=== PATIENT | male | born 1975 | race Caucasian/White ===

== ENCOUNTER 2019-10-05 09:41 | Emergency (ER) | payer OTHER, SELFPAY ==
[2019-10-05 09:49] VITALS: BP 128/88; PULSE 73; RESP 14; TEMP 36.8; O2SAT 97; BMI 25.0
--- NOTE | 2019-10-05 09:53 | DI.RAD.S_ITS ---
PROCEDURE: XR WRIST RT MIN 3V INDICATIONS: wrist pain post fall TECHNIQUE: 3 views of the wrist were acquired. COMPARISON: None. FINDINGS: Bones: There is an impacted, intra-articular, comminuted distal radius fracture. Minimal dorsal displacement/angulation of fracture fragments can be seen. There is associated mildly displaced ulnar styloid fracture. No additional fractures are detected. No navicular fractures are seen. No suspicious lytic or blastic lesions are seen. Soft tissues: No suspicious soft tissue calcifications. IMPRESSION: Intra-articular, impacted, comminuted fracture of the distal radius, with mild dorsal angulation. There is a mildly displaced accompanying ulnar styloid fracture seen. Dictated by: Darryl Mckeon M.D. on 10/05/2019 at 9:28 Approved by: Darryl Mckeon M.D. on 10/05/2019 at 9:30
--- NOTE | 2019-10-05 10:34 | ED.UPPEXIN ---
HPI - Extremity Injury (Upper) General Chief Complaint: Extremity Injury, Upper Stated Complaint: Suspects broken right wrist Time Seen by Provider: 10/05/19 10:26 Source: patient Mode of arrival: Ambulatory Limitations: no limitations History of Present Illness HPI narrative: Patient is a 44-year-old male who tripped and fell last night landing with his hand and wrist behind him. He has swelling and increased pain. He denies any other injury MD complaint: injury to: right and wrist Onset (ago): hour(s) Related Data Previous Rx's Medication Instructions Recorded hydrocodone-acetaminophen [[place]] 1 tab PO Q6H PRN #10 tab 10/05/19 Allergies Allergy/AdvReac Type Severity Reaction Status Date / Time No Known Drug Allergies Allergy Verified 10/05/19 09:52 Review of Systems Review of Systems Narrative: GENERAL: Denies chills,fever HEENT: Denies throat pain RESPIRATORY: Denies dyspnea, cough, wheezing CARDIOVASCULAR: Denies chest pain, palpitations GASTROINTESTINAL: Denies nausea, vomiting MUSCULOSKELETAL: See HPI SKIN: No rash, no laceration, no pruritus NEUROLOGIC: Denies weakness, dizziness, headache, numbness 8 point review of systems is negative except for those stated above and HPI Patient History Medical History Patient denies medical problems (Acute) Social History Smoking Status: Never smoker Smoking Status: Never smoker alcohol intake frequency: 0-2 drinks per day Substance Use Type: does not use Exam Initial Vital Signs Initial Vital Signs: Vital Signs Temperature 98.2 F 10/05/19 09:49 Pulse Rate 73 10/05/19 09:49 Respiratory Rate 14 10/05/19 09:49 Blood Pressure 128/88 10/05/19 09:49 Pulse Oximetry 97 10/05/19 09:49 GENERAL: Well-appearing, well-nourished and in no acute distress. CARDIOVASCULAR: peripheral pulses in tact, cap refill <2 sec RESPIRATORY: No respiratory distress, speaks in full sentences without difficulty EXTREMITIES: Normal range of motion, no clubbing or edema. Neurovascularly intact Right wrist swelling is good distal radial pulse is able to move all fingers make an okay sign sensation intact between 1st and 2nd digit NEUROLOGICAL: Cranial nerves II through XII grossly intact. Normal gait and speech. SKIN: Warm, dry, no petechiae, no rashes or lesions. Procedures Orthopedic Splinting/Casting Injury #1: Side: right Upper Extremity Injury Location: wrist Upper Extremity Immobilizer: sugar tong splint Post splinting neuro exam: intact Post splinting vascular exam: intact Placed by: Nursing Course Orders Ordered: ED Orders 10/05/19 09:53 XR wrist RT min 3V Stat Discontinued Medications Ibuprofen (Advil) 800 mg PO NOW ONE Stop: 10/05/19 10:35 Last Admin: 10/05/19 10:43 Dose: 800 mg Documented by: YASMEEN Vital Signs Vital signs: Vital Signs - 8 hr 10/05/19 09:49 Temperature 98.2 F Pulse Rate 73 Respiratory Rate 14 Blood Pressure 128/88 Pulse Oximetry 97 MDM - Extremity Injury (Upper) Imaging Data Extremity x-ray #1: Radiologist's Impression: PROCEDURE: XR WRIST RT MIN 3V INDICATIONS: wrist pain post fall TECHNIQUE: 3 views of the wrist were acquired. COMPARISON: None. FINDINGS: Bones: There is an impacted, intra-articular, comminuted distal radius fracture. Minimal dorsal displacement/angulation of fracture fragments can be seen. There is associated mildly displaced ulnar styloid fracture. No additional fractures are detected. No navicular fractures are seen. No suspicious lytic or blastic lesions are seen. Soft tissues: No suspicious soft tissue calcifications. IMPRESSION: Intra-articular, impacted, comminuted fracture of the distal radius, with mild dorsal angulation. There is a mildly displaced accompanying ulnar styloid fracture seen. Dictated by: Darryl Mckeon M.D. on 10/05/2019 at 9:28 Approved by: Darryl Mckeon M.D. on 10/05/2019 at 9:30 Discharge Plan Departure Patient Disposition: Home Clinical Impression: Fracture of right wrist Qualifiers: Encounter type: initial encounter Fracture type: closed Qualified Code(s): S62.101A - Fracture of unspecified carpal bone, right wrist, initial encounter for closed fracture Discharge Date/Time: 10/05/19 11:25 Instructions: DI for Wrist Fracture Activity Restrictions/Additional Instructions: *You have been diagnosed with right wrist fracture *What to do: This may require surgery. Please keep your splint on at all times you sling as necessary. Cover while bathing *Continue to take medications as directed-->SENT TO [facility] IN [place] 1-2 tablets every 6 hours if needed for severe pain especially at night to sleep *Follow up with your primary care provider in 2-3 days, be sure to see Orthopedics next week in [place] *Return to ER if you should have increased pain inability to move fingers or any new, worsening or concerning symptoms Prescriptions: New hydrocodone-acetaminophen [[place]] 5-325 mg tablet 1 tab PO Q6H PRN (Reason: pain) Qty: 10 RF: 0
[2019-10-05] MEDS: IBUPROFEN 400 MG TABLET 800 MG PO (10:43)
--- NOTE | 2019-10-05 11:18 | PC.NURSE ---
Sugar tong splint applied to R arm. Checked by . Pt educated on how to adjust splint if needed to ensure proper circulation.
== END 2019-10-05 11:25 | disposition home or self-care (01) ==
PROVIDERS: Emergency Provider Emergency Medicine
DX: S62.101A Fracture of unspecified carpal bone, right wrist, initial encounter for closed fracture (principal); W19.XXXA Unspecified fall, initial encounter
CPT/HCPCS: 73110; 99283